=== PATIENT | female | born 1995 | race Caucasian/White ===

== ENCOUNTER → 2019-01-27 | Outpatient (CLI) | payer MEDICAID, MEDICARE | LOC: LB.CLINIC 13:52 | PROVIDERS: ATTEND Nurse Practitioner Family | DX: R30.0 Dysuria (principal) | CPT/HCPCS: 81001 ==

== ENCOUNTER 2023-10-08 13:28 | Emergency (ER) | payer MEDICARE, MEDICAID ==
[2023-10-08 13:57] LABS: APPEARANCE,URINE CLEAR (CLEAR); BILIRUBIN,URINE NEGATIVE (NEGATIVE); COLOR,URINE YELLOW; GLUCOSE,URINE NEGATIVE (NEGATIVE); KETONES,URINE NEGATIVE (NEGATIVE); LEUKOCYTE ESTERASE,URINE NEGATIVE (NEGATIVE); NITRITE,URINE NEGATIVE (NEGATIVE); OCCULT BLOOD,URINE SMALL (NEGATIVE); PROTEIN,URINE NEGATIVE (NEGATIVE); UROBILINOGEN,URINE 0.2 E.U./dL (0.2-1.0)
[2023-10-08 14:05] LABS: BACTERIA,URINE MODERATE /HPF; SQUAMOUS EPITHELIAL CELLS,UR FEW /HPF; WBC,URINE 0-5 /HPF
[2023-10-08 14:16] VITALS: BP 125/91; PULSE 90
== END 2023-10-08 14:30 | disposition home or self-care (01) ==
LOC: LB.ED 13:28
DX: N30.91 Cystitis, unspecified with hematuria (principal); K21.9 Gastro-esophageal reflux disease without esophagitis; J45.909 Unspecified asthma, uncomplicated; Z79.899 Other long term (current) drug therapy; Z91.018 Allergy to other foods
CPT/HCPCS: 81001; 99283

== ENCOUNTER 2024-10-26 13:08 | Emergency (ER) | payer MEDICARE, MEDICAID ==
[2024-10-26 13:26] LABS: APPEARANCE,URINE SLIGHTLY CLOUDY (CLEAR); GLUCOSE,URINE NEGATIVE (NEGATIVE); OCCULT BLOOD,URINE TRACE-LYSED (NEGATIVE)
[2024-10-26 13:30] LABS: SQUAMOUS EPITHELIAL CELLS,UR OCCASIONAL /HPF
[2024-10-26 13:45] VITALS: BP 120/89; PULSE 99
== END 2024-10-26 13:45 | disposition home or self-care (01) ==
LOC: LB.ED 13:08
DX: N34.2 Other urethritis (principal); Z79.899 Other long term (current) drug therapy; Z91.018 Allergy to other foods; Z88.1 Allergy status to other antibiotic agents
CPT/HCPCS: 81001; 99283; A9270-GY